=== PATIENT | female | born 2000 | race Caucasian/White ===

== ENCOUNTER 2023-08-02 10:09 | Inpatient (IN) | payer MEDICAID, OTHER ==
[2023-08-03] MEDS ORDERED: Ibuprofen 800 MG TAB PO PRN (15:55)
[2023-08-03] MEDS ORDERED: hydrALAZINE 20 MG/ML VIAL SLOW IVP PRN (15:55)
[2023-08-03] MEDS ORDERED: Diphenoxylate HCl/Atropine Tablet PO PRN (15:55)
[2023-08-03] MEDS ORDERED: Acetaminophen 500 MG TAB PO PRN (15:55)
[2023-08-03] MEDS ORDERED: Ondansetron PF 4 MG/2 ML Vial IVP PRN (15:55)
[2023-08-03] MEDS ORDERED: Carboprost 250 MCG/ML AMP IM PRN (15:55)
[2023-08-03] MEDS ORDERED: Methylergonovine 0.2 MG/ML VIAL IM PRN (15:55)
[2023-08-03] MEDS ORDERED: Tranexamic Acid 1,000 MG/10 ML VIAL IVP PRN (15:55)
[2023-08-03] MEDS ORDERED: Lidocaine 1% (PF) 30 ML VIAL SC PRN (15:55)
[2023-08-03] MEDS ORDERED: HYDROcodone/Acetaminophen 5/325 mg Tablet PO PRN (15:55)
[2023-08-03] MEDS ORDERED: Promethazine HCl 25 MG/ML VIAL IM PRN (15:55)
[2023-08-03] MEDS ORDERED: Oxytocin 30 units/NS 500 ML 500 ML IV SCH (16:00)
[2023-08-03] MEDS: Lactated Ringer's 1,000 ML IV SCH (21:20)
[2023-08-03 22:04] VITALS: BMI 32.8
[2023-08-03 22:15] LABS: Hematocrit 32.9 % (34.9-44.5); Hemoglobin 10.8 g/dL (12.0-15.5); Mean Corpuscular HGB CONC 32.8 g/dL (32.0-36.0); Mean Corpuscular Hemoglobin 27.8 pg (27.0-33.0); Mean Corpuscular Volume 84.8 fl (81.6-98.3); Mean Platelet Volume 10.2 fl (7.4-10.4); Platelet Count 319 10x3/uL (150-450); RBC Distribution Width 14.6 % (11.5-14.5); Red Blood Cell (RBC) Count 3.88 10x6/uL (3.90-5.03); White Blood Cell (WBC) Count 9.8 10x3/uL (3.5-10.5)
[2023-08-03 22:48] LABS: Syphilis Antibody Nonreactive (Nonreactive); Syphilis Antibody Index 0.03 S/CO (<1.00 Non-Reactive)
[2023-08-03 22:49] LABS: Hep B Surf Ag - L&D Non-Reactive S/CO (NonReactive)
[2023-08-04] MEDS: Misoprostol 100 MCG TAB VAG SCH (00:07)
[2023-08-04] MEDS: fentaNYL 50 mcg/mL 1 mL Vial SLOW IVP PRN (09:02)
[2023-08-04] MEDS: fentaNYL/Ropivacaine Epidural 100 ML ONE (09:18)
[2023-08-04] MEDS ORDERED: diphenhydrAMINE 50 MG/ML VIAL IVP PRN (10:29)
[2023-08-04] MEDS ORDERED: Ondansetron PF 4 MG/2 ML Vial IVP PRN ×2 (10:29→13:41)
[2023-08-04] MEDS ORDERED: Promethazine HCl 25 MG/ML VIAL IM PRN ×2 (10:29→13:41)
[2023-08-04] MEDS ORDERED: Acetaminophen 325 MG TAB PO PRN ×2 (10:29→13:41)
[2023-08-04] MEDS ORDERED: Naloxone HCl 0.4 mg/ml Vial IVP PRN ×2 (10:29)
[2023-08-04] MEDS ORDERED: ePHEDrine Sulfate 50 MG/10 ML VIAL SLOW IVP PRN (10:29)
[2023-08-04] MEDS ORDERED: Moisturizing Cream (Eucerin) 113 GM JAR TOP PRN (10:29)
[2023-08-04] MEDS ORDERED: Lactated Ringer's 500 ML IV PRN (10:29)
[2023-08-04] MEDS ORDERED: fentaNYL 2 mcg/Ropivacaine 0.2% Epidural 100 ML CADD EPIDURAL SCH (10:30)
[2023-08-04] MEDS ORDERED: Communication Order-Pharmacy FS SCH (10:30)
[2023-08-04] MEDS: Oxytocin 30 units/NS 500 ML 500 ML IV SCH (11:37)
[2023-08-04] MEDS: Misoprostol 200 MCG TAB PR PRN (11:37)
[2023-08-04] MEDS ORDERED: Bisacodyl 10 MG SUPP PR PRN (13:41)
[2023-08-04] MEDS ORDERED: Milk Of Magnesia 30 ML UDCUP PO PRN (13:41)
[2023-08-04] MEDS ORDERED: hydrALAZINE 20 MG/ML VIAL SLOW IVP PRN (13:41)
[2023-08-04] MEDS ORDERED: Preparation H Ointment 28 GM TUBE PR PRN (13:41)
[2023-08-04] MEDS ORDERED: Lanolin Ointment 7 GM TUBE TOP PRN (13:41)
[2023-08-04] MEDS ORDERED: diphenhydrAMINE 25 MG CAP PO PRN (13:41)
[2023-08-04] MEDS ORDERED: Acetaminophen 500 MG TAB PO PRN (13:41)
[2023-08-04] MEDS: Measles/Mumps/Rubella 10 MCG/0.5 ML VIAL SC ONE (14:37)
[2023-08-04] MEDS: Boostrix 0.5 ML (Tdap) VIAL (>/=7 yrs of age) IM ONE (14:37)
[2023-08-04] MEDS: Ferrous Sulfate 325 MG TAB PO SCH (14:38)
[2023-08-04] MEDS ORDERED: Bupivacaine 0.25% HCL 30 ML VIAL ONE (16:27)
[2023-08-04] MEDS: Ibuprofen 800 MG TAB PO SCH (16:56)
[2023-08-04] MEDS: Benzocaine-Menthol 82.5 ML CAN TOP PRN (20:59)
[2023-08-05] MEDS: Docusate 100 MG CAP PO SCH (06:00)
[2023-08-05] MEDS: Prenatal Vitamin 1 TAB PO SCH (10:13)
[2023-08-05 10:15] VITALS: BP 133/84; TEMP 98
== END 2023-08-05 13:30 | disposition home or self-care (01) | DRG 807 ==
LOC: CSHLD 08-03 20:44 → CSHPP 08-04 14:02
PROVIDERS: ADMIT Family Medicine; ATTEND Family Medicine
PROC: 10E0XZZ Delivery of Products of Conception, External Approach (ICD-10-PCS; principal; 2023-08-04)
PROC: 3E0DXGC Introduction of Other Therapeutic Substance into Mouth and Pharynx, External Approach (ICD-10-PCS; 2023-08-04)
PROC: 10H07YZ Insertion of Other Device into Products of Conception, Via Natural or Artificial Opening (ICD-10-PCS; 2023-08-04)
PROC: 4A1HXCZ Monitoring of Products of Conception, Cardiac Rate, External Approach (ICD-10-PCS; 2023-08-04)
DX: O99.214 Obesity complicating childbirth (principal); Z37.0 Single live birth; E66.9 Obesity, unspecified; Z3A.40 40 weeks gestation of pregnancy; F32.9 Major depressive disorder, single episode, unspecified; O99.344 Other mental disorders complicating childbirth; O48.0 Post-term pregnancy
CPT/HCPCS: 36415; 51702; 85027; 86780; 86850; 86900; 86901; 87340; 99285; J0665; J2590; J3010; J7120